=== PATIENT | female | born 1980 | race Two or more races ===

== ENCOUNTER 2018-06-21 18:49 | Emergency (ER) | payer OTHER ==
[2018-06-21 19:47] VITALS: BP 139/76
[2018-06-21] MEDS ORDERED: IBUPROFEN 800 MG TABLET PO ONE (20:39)
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
--- NOTE | 2018-06-21 21:31 | RADIOLOGY REPORT (SQ) ---
3 VIEWS OF THE LEFT SHOULDER HISTORY: Joint pain. COMPARISON: None. FINDINGS: No acute fracture is seen. The joint spaces are preserved. The soft tissues are unremarkable. IMPRESSION: No acute fracture or dislocation.
--- NOTE | 2018-06-21 21:33 | RADIOLOGY REPORT (SQ) ---
CT CERVICAL SPINE WITHOUT IV CONTRAST HISTORY: Neck pain. COMPARISON: None. TECHNIQUE: CT scan of the cervical spine without IV contrast. This exam was performed according to our departmental dose-optimization program, which includes automated exposure control, adjustment of the mA and/or kV according to patient size and/or use of iterative reconstruction technique. FINDINGS: No acute cervical fracture or prevertebral soft tissue swelling is seen. There is straightening of the normal cervical lordosis, which may be due to cervical collar, muscle spasm, or patient positioning. The facet joints are intact. No advanced canal stenosis is identified. A 2 cm hypodense nodule is seen in the left thyroid lobe. IMPRESSION: 1. No acute fracture or subluxation of the cervical spine. 2. 2 cm thyroid nodule. Consider thyroid ultrasound for complete evaluation.
== END 2018-06-21 22:13 | disposition home or self-care (01) ==
LOC: ER 18:49
DX: M79.10 Myalgia, unspecified site (principal); R20.0 Anesthesia of skin; M25.512 Pain in left shoulder; V87.7XXA Person injured in collision between other specified motor vehicles (traffic), initial encounter
CPT/HCPCS: 99284; 73030; 72125; L0120